=== PATIENT | female | born 1995 | race Caucasian/White ===

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

== ENCOUNTER → 2017-07-14 | Outpatient (REF) | payer BC, MEDICAID ==
[2017-07-14 17:35] LABS: APPEARANCE, URINE CLOUDY (CLEAR); BACTERIA, URINE AUTO NEGATIVE (NEGATIVE); BILIRUBIN, URINE AUTO NEGATIVE (NEGATIVE); BLOOD, URINE BLOOD NEGATIVE (NEGATIVE); CALCIUM OXALATE CRYSTALS SMALL; COLOR, URINE YELLOW (YELLOW); GLUCOSE, URINE (UA) AUTO NEGATIVE (NEGATIVE); KETONE, URINE AUTO NEGATIVE (NEGATIVE); LEUKOCYTE ESTERASE, URINE AUTO NEGATIVE (NEGATIVE); MUCUS, URINE MODERATE (NEGATIVE); NITRITE, URINE AUTO NEGATIVE (NEGATIVE); PROTEIN, URINE AUTO NEGATIVE (NEGATIVE); RBC, URINE AUTO 1 /HPF (0-3); SPECIFIC GRAVITY URINE AUTO 1.026 (1.002-1.035); SQUAMOUS EPITHELIAL CELL UR AU 12 /HPF (0-6); UROBILINOGEN, URINE AUTO 0.2 mg/dL (0.0-2.0); WBC, URINE AUTO 4 /HPF (0-3)
== END ==
LOC: M LAB REF 16:22
DX: N39.0 Urinary tract infection, site not specified (principal)
CPT/HCPCS: 81001

== ENCOUNTER 2018-04-13 20:36 | Emergency (ER) | payer BC, OTHER, MEDICAID ==
[2018-04-13 21:29] LABS: KETONE, URINE AUTO RFX NEGATIVE (NEGATIVE); MUCUS, URINE RFX SMALL (NEGATIVE); NITRITE, URINE AUTO RFX NEGATIVE (NEGATIVE); RBC, URINE AUTO RFX 3 /HPF (0-3); SPECIFIC GRAVITY UR AUTO RFX 1.005 (1.002-1.035); SQUAM EPITHELIAL CELL UR AURFX 4 /HPF (0-6); WBC, URINE AUTO RFX 7 /HPF (0-3)
[2018-04-13 21:30] LABS: LEUKOCYTE ESTERASE UR AUTO RFX TRACE (NEGATIVE)
[2018-04-13] MEDS: CEPHALEXIN 500 MG CAP PO (21:53)
[2018-04-13] MEDS: PHENAZOPYRIDINE 100 MG TAB PO (21:57)
== END 2018-04-13 22:02 | disposition home or self-care (01) ==
LOC: M ED 20:36
DX: N30.00 Acute cystitis without hematuria (principal); Z88.8 Allergy status to other drugs, medicaments and biological substances; Z79.899 Other long term (current) drug therapy
CPT/HCPCS: 81001

== ENCOUNTER → 2018-08-23 | Outpatient (REF) | payer BC, OTHER ==
[~2018-08-23] MED LIST changes: +BENZ-18 PO; -BENZ100C5 PO; +KEFL500C17 PO; +MIRT30TA3; +PYRI1TAB5 PO; +ZOFR4TAB14 PO; -ZOFR4TAB3 PO
== END ==
LOC: M SFHCLERA 15:43
PROVIDERS: ATTEND Physician Assistant
DX: R35.0 Frequency of micturition (principal)

== ENCOUNTER → 2018-10-13 | Outpatient (REF) | payer OTHER, BC ==
[~2018-10-13] MED LIST changes: +FLUT50SP12; -FLUTISP
== END ==
LOC: M SFHCLERA 09:36
PROVIDERS: ATTEND Physician Assistant
DX: R11.0 Nausea (principal)

== ENCOUNTER 2018-12-06 01:13 | Inpatient (IN) | payer BC, MEDICAID ==
[~2018-12-06] VITALS: Ht 165.1 cm; Wt 68.2 kg
[2018-12-06] VITALS (8 sets, daily range): BP systolic 134–209; BP diastolic 62–109
[2018-12-06] MEDS ORDERED: MULTTAB20 PO (01:31)
[2018-12-06] MEDS ORDERED: LACTATED RINGER'S 1000 ML IV STA (01:47)
[2018-12-06] MEDS ORDERED: LR 1,000 ML IV SCH (01:47)
[2018-12-06] MEDS ORDERED: AMPICILLIN SOD 2 GM in D5W MINI-BAG PLUS 100 ML IV ONE (02:00)
[2018-12-06] MEDS ORDERED: OXYTOCIN 30 UNITS IN 0.9% NaCl 500ML IV BAG (J2590) As Ordered ONE (02:01)
[2018-12-06 02:05] LABS: HEMATOCRIT 38.1 % (36.0-47.0); HEMOGLOBIN 13.1 g/dl (12.0-15.5); MEAN CORPUSCULAR HEMOGLOBIN 31.1 pg (27.0-33.0); MEAN CORPUSCULAR HGB CONC 34.4 g/dl (32.0-36.5); MEAN CORPUSCULAR VOLUME 90.5 fl (80.0-96.0); PLATELET COUNT, AUTOMATED 276 10^3/uL (150-450); RED BLOOD COUNT 4.21 10^6/uL (4.00-5.40); WHITE BLOOD COUNT 9.6 10^3/uL (4.0-10.0)
[2018-12-06 02:57] LABS: CORD GAS ABE V -1.5; CORD GAS HCO3 V 26.2 MEQ/L; CORD GAS O2 SAT V 51.5 %; CORD GAS PCO2 V 54.7 mmHg; CORD GAS PH V 7.299 UNITS; CORD GAS PO2 V 25.9 mmHg; CORD GAS SBC V 21.8 MEQ/L; CORD GAS TCO2 V 27.9 MEQ/L
[2018-12-06 03:00] LABS: CORD GAS ABE A -0.1; CORD GAS HCO3 A 29.9 MEQ/L; CORD GAS O2 SAT A 17.5 %; CORD GAS PCO2 A 72.4 mmHg; CORD GAS PH A 7.234 UNITS; CORD GAS PO2 A 13.9 mmHg; CORD GAS SBC A 22.2 MEQ/L; CORD GAS TCO2 A 32.1 MEQ/L
[2018-12-06] MEDS ORDERED: OXYTOCIN DRIP 30 UNITS in APPROPRIATE DILUENT 1 EA IV SCH ×2 (03:14→04:00)
[2018-12-06] MEDS ORDERED: DOCUSATE SODIUM 100 MG CAP PO PRN (03:15)
[2018-12-06] MEDS ORDERED: MEASLES,MUMPS,RUBELLA VACCINE INJ (MMR-II) (90707) SC SCH (03:15)
[2018-12-06] MEDS ORDERED: DIBUCAINE 1% OINTMENT 30GM TOP PRN (03:15)
[2018-12-06] MEDS ORDERED: ACETAMINOPHEN 500 MG TAB PO PRN (03:15)
[2018-12-06] MEDS ORDERED: ACETAMINOPHEN TAB 650MG DOSE (2X325MG) PO PRN (03:15)
[2018-12-06] MEDS ORDERED: METHYLERGONOVINE MALEATE 0.2 MG TAB PO PRN (03:15)
[2018-12-06] MEDS ORDERED: LIDOCAINE 1% MDV 20ML VIAL INFIL ONE (03:15)
[2018-12-06] MEDS ORDERED: IBUPROFEN 800 MG TAB PO PRN (03:15)
[2018-12-06] MEDS ORDERED: RHOGAM 300 MCG (1500 IU) INJ (J2790) IM SCH (03:15)
[2018-12-06 03:29] LABS: ALT/SGPT 14 U/L (12-78); BILIRUBIN,TOTAL 0.7 MG/DL (0.2-1.0); CREATININE FOR GFR 0.51 MG/DL (0.55-1.30); GLOMERULAR FILTRATION RATE > 60.0 (>60); LDH LACTATE DEHYDROGENASE 184 U/L (84-246); URIC ACID 5.2 MG/DL (2.6-6.0)
[2018-12-06] MEDS ORDERED: AMPICILLIN SOD 1 GM in D5W MINI-BAG PLUS 50 ML IV SCH (06:00)
[2018-12-06] MEDS: PRENATAL VITAMINS CHEWABLE TABLET PO SCH (07:27)
--- NOTE | 2018-12-06 10:22 | DN ---
DATE: 12/06/2018 Ana Luisa is a 23-year-old female 1, para 0 who presented with spontaneous rupture of membranes at 40 weeks gestation, in active labor. She then pushed and delivered a live female in left occiput anterior position over a midline episiotomy. scores 8 and 9. weight 7 pounds 12 ounces. Placenta delivered spontaneously intact. Three-vessel cord. The perineum, vagina and cervix were inspected. No other lacerations noted. This episiotomy was repaired with 2-0 chromic. Estimated blood loss 300 mL. Both mother and baby in stable condition.
--- NOTE | 2018-12-06 13:07 | HPE ---
DATE OF ADMISSION: 12/06/2098 Ana Luisa is a 23-year-old female 1, para 0, who presented at 40 weeks gestation in labor with spontaneous rupture of membranes. Upon evaluation, she was found to be an active labor. At this point, decision was made for admission. The patient had an appointment scheduled to the office today, as she was transferring care to our office. Her record was reviewed, which was essentially unremarkable. lab: Blood type is O+, rubella immune, hepatitis negative, HIV negative, GC and chlamydia negative. Her 1-hour sugar was elevated at 150 and 3 hours was within normal limits. The patient was GBS positive. PAST MEDICAL HISTORY: Denies. PAST SURGICAL HISTORY: Denies. SOCIAL HISTORY: Denies any alcohol, drugs or cigarette smoking. REVIEW OF SYSTEMS: Unremarkable. MEDICATIONS: vitamin ALLERGIES: NO KNOWN DRUG ALLERGIES. PHYSICAL EXAMINATION: HEENT: Grossly within normal limits. ABDOMEN: Soft, nontender, nondistended. Extremities: No clubbing, cyanosis or edema. Vaginal exam: Grossly ruptured. Clear fluid. The patient was fully dilated. The fetus at +1 station. Tracing reviewed. She had a category 1 tracing; however, while pushing she had a deceleration down to 70 beats per minute with good recovery. ASSESSMENT: Intrauterine at 40+ weeks gestation with spontaneous rupture of membranes, in second stage to labor. PLAN: Admit to labor and delivery. Routine labs sent. Awaiting delivery.
[2018-12-07 06:00] VITALS: BP 132/75
[2018-12-07] MEDS: PRENATAL VITAMINS CHEWABLE TABLET PO SCH (07:53)
[2018-12-07] MEDS: IBUPROFEN 600 MG TAB PO PRN ×2 (07:54→16:36)
[2018-12-07 17:47] VITALS: BP 107/77
[2018-12-08 06:00] VITALS: BP 132/77
[2018-12-08] MEDS: PRENATAL VITAMINS CHEWABLE TABLET PO SCH (09:35)
== END 2018-12-08 14:15 | disposition home or self-care (01) | DRG 560 ==
LOC: M LDO 01:13 → M LDI 01:48 → M OBS 04:52
PROVIDERS: ADMIT Obstetrics & Gynecology; ATTEND Obstetrics & Gynecology
PROC: 10E0XZZ Delivery of Products of Conception, External Approach (ICD-10-PCS; principal; 2018-12-06)
PROC: 0W8NXZZ Division of Female Perineum, External Approach (ICD-10-PCS; 2018-12-06)
DX: O48.0 Post-term pregnancy (principal); O99.824 Streptococcus B carrier state complicating childbirth; Z3A.40 40 weeks gestation of pregnancy; Z37.0 Single live birth

== ENCOUNTER → 2019-08-11 | Outpatient (REF) | payer BC, MEDICAID ==
[~2019-08-11] MED LIST changes: +MULTTAB20 PO
[2019-08-11 13:23] LABS: HEMATOCRIT 38.7 % (36.0-47.0); MEAN CORPUSCULAR HEMOGLOBIN 29.7 pg (27.0-33.0); MEAN CORPUSCULAR HGB CONC 33.6 g/dl (32.0-36.5); MEAN CORPUSCULAR VOLUME 88.4 fl (80.0-96.0); PLATELET COUNT, AUTOMATED 409 10^3/uL (150-450); RED BLOOD COUNT 4.38 10^6/uL (4.00-5.40); WHITE BLOOD COUNT 7.9 10^3/uL (4.0-10.0)
[2019-08-11 14:14] LABS: HCG, SERUM QUANTITATIVE 3513 MIU/ML; HEPATITIS C VIRUS ABY INDEX < 0.0 INDEX (<0.8); HIV 1&2 SCREEN CENTAUR NEGATIVE (NEGATIVE); RUBELLA IgG QUALITATIVE IMMUNE (IMMUNE)
== END ==
LOC: M LAB REF 12:21
PROVIDERS: ATTEND Obstetrics & Gynecology
DX: Z32.01 Encounter for pregnancy test, result positive (principal)

== ENCOUNTER 2019-08-21 19:13 | Emergency (ER) | payer BC, MEDICAID ==
[~2019-08-21] VITALS: Ht 165.1 cm; Wt 61.4 kg
[2019-08-21 20:24] LABS: BASO % 0.4 % (0.0-1.0); EOS # 0.1 10^3/uL (0.0-0.5); EOS % 0.5 % (0.0-3.0); HEMATOCRIT 35.9 % (36.0-47.0); HEMOGLOBIN 12.1 g/dl (12.0-15.5); LYMPH # 2.7 10^3/uL (1.5-5.0); MEAN CORPUSCULAR HEMOGLOBIN 29.2 pg (27.0-33.0); MEAN CORPUSCULAR HGB CONC 33.7 g/dl (32.0-36.5); MEAN CORPUSCULAR VOLUME 86.7 fl (80.0-96.0); MONO # 0.6 10^3/uL (0.0-0.8); MONO % 5.6 % (0.0-5.0); NEUTROPHILS # 7.4 10^3/uL (1.5-8.5); NEUTROPHILS % 68.2 % (36.0-66.0); PLATELET COUNT, AUTOMATED 399 10^3/uL (150-450); RED BLOOD COUNT 4.14 10^6/uL (4.00-5.40); WHITE BLOOD COUNT 10.8 10^3/uL (4.0-10.0)
--- NOTE | 2019-08-21 20:54 | REPVR ---
PROCEDURE INFORMATION: Exam: US First Trimester, Transabdominal Exam date and time: 08/21/2019 8:32 PM Age: 24 years old Clinical indication: Lmp or gestational age (in weeks): 7w2d; Antepartum complications; Bleeding; complicated by abdominal or pelvic pain; Lower; First trimester; ; Additional info: Pelvic pain/bleeding; 7 wks ; [facility] TECHNIQUE: Imaging protocol: Real-time transabdominal obstetrical ultrasound of the maternal pelvis and a first trimester , less than 14 weeks 0 days, with image documentation. COMPARISON: No relevant prior studies available. FINDINGS: GESTATION: Gestation: There is an irregular gestational sac in the lower uterine segment/cervix. pole measures 10 mm . Heart rate: No heart motion is seen. Placenta: Small amount of subchorionic hemorrhage. BIOMETRY: Estimated gestational age: 7 weeks 0 days. Mean sac diameter: Mean sac diameter is 11.9 mm. MATERNAL: Uterus: Unremarkable. Cervix: Unremarkable. Right adnexa: Unremarkable. Left adnexa: Unremarkable. Intraperitoneal: Trace pelvic free fluid. IMPRESSION: Irregular gestational sac in the lower uterine segment with small subchronic hemorrhage. No cardiac motion is seen consistent with in progress. Electronically signed by: Juan Lee On 08/21/2019 20:54:24 PM
[2019-08-21 21:13] VITALS: BP 136/66
[2019-08-21] MEDS ORDERED: KEFL500C17 PO (21:14)
== END 2019-08-21 21:15 | disposition home or self-care (01) ==
LOC: M ED 19:13
DX: O03.4 Incomplete spontaneous abortion without complication (principal); Z3A.01 Less than 8 weeks gestation of pregnancy; Z79.899 Other long term (current) drug therapy; Z88.8 Allergy status to other drugs, medicaments and biological substances

== ENCOUNTER → 2019-08-22 | Outpatient (REF) | payer BC, MEDICAID | LOC: M LAB REF 17:58 | PROVIDERS: ATTEND Obstetrics & Gynecology | DX: O03.39 Incomplete spontaneous abortion with other complications (principal) ==